=== PATIENT | female | born 1955 | race African-American/Black ===

== ENCOUNTER → 2022-01-18 | Outpatient (CLI) | payer MEDICARE | LOC: MAMMO 08:28 | PROVIDERS: ATTEND Internal Medicine | DX: Z12.31 Encounter for screening mammogram for malignant neoplasm of breast (principal) | CPT/HCPCS: 77067 ==

== ENCOUNTER → 2022-01-23 | Outpatient (CLI) | payer MEDICARE | LOC: DX 12:08 | PROVIDERS: ATTEND Internal Medicine | DX: Z00.00 Encounter for general adult medical examination without abnormal findings (principal); Z13.820 Encounter for screening for osteoporosis | CPT/HCPCS: 77080 ==

== ENCOUNTER → 2022-01-26 | Outpatient (CLI) | payer MEDICARE | LOC: RAD 11:18 | PROVIDERS: ATTEND Internal Medicine | DX: Z00.00 Encounter for general adult medical examination without abnormal findings (principal); M25.461 Effusion, right knee; M25.571 Pain in right ankle and joints of right foot | CPT/HCPCS: 71046 ==

== ENCOUNTER → 2022-05-22 | Outpatient (CLI) | payer MEDICARE | LOC: RAD 05-19 12:21 | PROVIDERS: ATTEND Internal Medicine | DX: M54.50 Low back pain, unspecified (principal) | CPT/HCPCS: 72100 ==

== ENCOUNTER 2022-06-27 08:22 | Outpatient (RCR) | payer OTHER | END 2022-06-30 | LOC: PT 08:22 | PROVIDERS: ATTEND Internal Medicine | DX: M47.817 Spondylosis without myelopathy or radiculopathy, lumbosacral region (principal); M62.81 Muscle weakness (generalized); M79.604 Pain in right leg; M53.86 Other specified dorsopathies, lumbar region ==

== ENCOUNTER → 2024-05-21 | Outpatient (REF) | payer MEDICARE | LOC: MAMMO 07:57 | PROVIDERS: ATTEND Internal Medicine | DX: Z12.31 Encounter for screening mammogram for malignant neoplasm of breast (principal); M25.562 Pain in left knee | CPT/HCPCS: 77067 ==

== ENCOUNTER → 2025-01-09 | Outpatient (REF) | payer MEDICARE | LOC: RAD 07:40 | PROVIDERS: ATTEND Internal Medicine | DX: M54.42 Lumbago with sciatica, left side (principal) | CPT/HCPCS: 72100 ==

== ENCOUNTER → 2025-04-30 | Outpatient (RCR) | payer MEDICARE | LOC: PT 04-14 06:00 | PROVIDERS: ATTEND Internal Medicine | DX: M54.42 Lumbago with sciatica, left side (principal); M48.061 Spinal stenosis, lumbar region without neurogenic claudication ==

== ENCOUNTER 2025-05-28 07:00 | Outpatient (RCR) | payer MEDICARE | END 2025-05-31 | LOC: PT 07:00 | PROVIDERS: ATTEND Internal Medicine | DX: M54.42 Lumbago with sciatica, left side (principal); M48.061 Spinal stenosis, lumbar region without neurogenic claudication ==

== ENCOUNTER → 2025-06-30 | Outpatient (RCR) | payer MEDICARE | LOC: PT 06-02 06:43 | PROVIDERS: ATTEND Internal Medicine | DX: M54.42 Lumbago with sciatica, left side (principal) ==